=== PATIENT | female | born 1960 | race Caucasian/White ===

== ENCOUNTER 2016-09-09 17:00 | Emergency (ER) | payer OTHER ==
[2016-09-09] MEDS ORDERED: OXYCODONE HCL 5 MG TABLET ONE (17:39)
--- NOTE | 2016-09-09 18:08 | RAD ---
HISTORY: Fall 3 weeks ago. Pain. Initial encounter. COMPARISONS: None FINDINGS: AP pelvis with AP and frog-leg lateral views of the right hip are obtained. Bones:No fracture or dislocation. Joints: Moderate superior joint space loss is present bilaterally. Soft tissue: Normal Other: Nonspecific bowel gas pattern overlays the osseous structures.. IMPRESSION: No fracture or dislocation. Degenerative changes as above.
[2016-09-09] MEDS ORDERED: KETOROLAC TROMETHAMINE 30 MG/ML 1 ML VIAL ONE (18:35)
== END 2016-09-09 19:10 | disposition home or self-care (01) ==
LOC: ED 17:00
DX: M25.551 Pain in right hip (principal); F17.210 Nicotine dependence, cigarettes, uncomplicated; Z85.72 Personal history of non-Hodgkin lymphomas
CPT/HCPCS: 73502; 99283 ×2; 96372; A9270; J1885